=== PATIENT | female | born 1975 | race Caucasian/White ===

== ENCOUNTER 2017-07-22 01:41 | Emergency (ER) | payer BC ==
--- NOTE | 2017-07-22 01:58 | EDM.PDOC ---
ED HPI GENERAL MEDICAL PROBLEM - General Chief Complaint: Chest Pain Stated Complaint: CHEST PAIN Time Seen by Provider: 07/22/17 01:57 Source of Information: Reports: Patient History Limitations: Reports: No Limitations - History of Present Illness INITIAL COMMENTS - FREE TEXT/NARRATIVE: 42-year-old female attends the ED due to persistent retrosternal pressure discomfort that started before midnight last night. Radiates up into her neck through to her back. No relief with burping or belching. Patient has no known history of coronary disease. She has noted blood pressure to be elevated at home for the last several months but has been reluctant to take any blood pressure medications due to paroxysmal benign positional vertigo symptoms that she gets sporadically. She quite a bad bout yesterday which did make her vomit. No signs of vertigo today. At present she has a lot of pressure at the base of her skull with a headache. Blood pressure is markedly elevated at 208/116. She states it was 200/115 at home tonight. Denies cough or sputum production no fever or chills. Has a central chest pressure discomfort which is been constant for over 24 hours. She's had previous lap band procedure. Carried out greater than 10 years ago and rarely refluxes but it does happen occasionally. She's had previous cholecystectomy as well. She states number burping or belching does not seem to relieve the discomfort. She is a never smoker. ECG done by triage nurse shows sinus rhythm at 64 per minute. There is early R-wave transition with poor R-wave progression and no other signs of ischemia. There is left ventricular hypertrophy pattern by voltage only with prominent R-wave in lead 1. QT interval is mildly prolonged at 412. Onset: Gradual Onset Date: 07/21/17 (Has had chest pain for at least 24 hours a central chest pressure heaviness. Nothing seems to make it go away or make it better although she can distract a bit when she's busy during the day.) Duration: Hour(s):, Constant Location: Reports: Chest (Central chest pressure discomfort.) Quality: Reports: Ache, Pressure Severity: Moderate Improves with: Reports: None Worsens with: Reports: Other (Perhaps worse when lying down but she is also concentrating on it more.) Context: Denies: Activity, Exercise, Lifting, Sick Contact, Trauma, Other Associated Symptoms: Reports: Chest Pain. 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 (see below) (None.) Chest Pain Score (Numeric/FACES): 5 - Related Data Allergies Allergy/AdvReac Type Severity Reaction Status Date / Time Penicillins Allergy Hives Verified 07/22/17 01:51 Sulfa (Sulfonamide Allergy Hives Verified 07/22/17 01:51 Antibiotics) bees Allergy Airway Uncoded 04/20/16 13:29 Tightness Home Meds: Home Meds Lisinopril/Hydrochlorothiazide [Lisinopril-Hctz 20-12.5 mg Tab] 1 each PO DAILY #30 tablet 07/22/17 [Rx] Past Medical History Neurological History: Reports: Vertigo Psychiatric History: Reports: Anxiety, Depression - Past Surgical History GI Surgical History: Reports: Bariatric Procedure, Cholecystectomy Female Surgical History: Reports: Hysterectomy Social & Family History - Tobacco Use Smoking Status *Q: Never Smoker Second Hand Smoke Exposure: No - Caffeine Use Caffeine Use: Reports: Coffee - Recreational Drug Use Recreational Drug Use: No - Living Situation & Occupation Living situation: Reports: Occupation: Employed ED ROS GENERAL - Review of Systems Review Of Systems: See Below Constitutional: Reports: Malaise. Denies: Fever, Chills, Weakness, Fatigue, Decreased Appetite, Weight Loss HEENT: Reports: No Symptoms Respiratory: Denies: Shortness of Breath, Wheezing, Pleuritic Chest Pain, Cough , Sputum, Hemoptysis Cardiovascular: Reports: Chest Pain, Blood Pressure Problem. Denies: Claudication, Dyspnea on Exertion, Edema, Lightheadedness, Orthopnea (Has known hypertension for a long period of time but is been reluctant to take medications.), Palpitations Endocrine: Reports: No Symptoms GI/Abdominal: Reports: Decreased Appetite, Other (Had LAP-BAND procedure carried out 10 years ago with no adjustment of her fluid in her LAP-BAND port for a long time. Occasional GERD symptoms but rarely would have to take Tums or Rolaids.). Denies: Abdominal Pain : Reports: No Symptoms Musculoskeletal: Reports: Neck Pain (Knees and hips at times. At present her neck is giving her a lot of pressure discomfort.), Back Pain, Joint Pain Skin: Reports: No Symptoms Neurological: Reports: Headache. Denies: Confusion, Dizziness, Numbness, Paresthesia, Pre-Existing Deficit, Seizure, Syncope, Tingling, Tremors, Trouble Speaking, Difficulty Walking, Weakness, Gait Disturbance, Other Psychiatric: Reports: No Symptoms Hematologic/Lymphatic: Reports: No Symptoms Immunologic: Reports: No Symptoms ED EXAM, GENERAL - Physical Exam Exam: See Below Exam Limited By: No Limitations General Appearance: Alert, WD/WN, No Apparent Distress Eye Exam: Bilateral Eye: Normal Inspection Throat/Mouth: Normal Inspection, Normal Lips, Normal Teeth, Normal Gums Head: Atraumatic, Normocephalic Neck: Normal Inspection, Supple, Non-Tender, Full Range of Motion. No: Carotid Bruit, Lymphadenopathy (L), Lymphadenopathy (R) Respiratory/Chest: No Respiratory Distress, Lungs Clear, Normal Breath Sounds, Chest Non-Tender Cardiovascular: Normal Peripheral Pulses, Regular Rate, Rhythm, No Edema, No Gallop, No Murmur, No Rub Peripheral Pulses: 2+: Radial (L), Radial (R), Posterior Tibial (L), Posterior Tibial (R), Dorsalis Pedis (L), Dorsalis Pedis (R), 3+: Carotid (L), Carotid (R) GI/Abdominal: Normal Bowel Sounds, Soft, Non-Tender, No Organomegaly, Other ( Mildly obese. Port from left band is palpable left upper quadrant of the abdomen. Evidence of previous laparoscopic cholecystectomy) Extremities: Normal Inspection, Normal Range of Motion, Non-Tender, No Pedal Edema Neurological: Alert, Oriented, CN II-XII Intact, Normal Cognition, Normal Gait, No Motor/Sensory Deficits Psychiatric: Normal Affect, Normal Mood Skin Exam: Warm, Dry, Intact, Normal Color, No Rash EKG INTERPRETATION EKG Date: 07/22/17 Time: 01:50 Rhythm: NSR Rate (Beats/Min): 66 [place]: LAD-Left [place] Deviation (Mild left axis deviation at -10) P-Wave: Present QRS: Other (Early R-wave transition with poor R-wave progression after this. Consider right ventricular hypertrophy. Near Q-wave in 3 and aVF of unclear significance but consider possibility of an old inferior wall myocardial infarction.) ST-T: Normal QT: Prolonged (Mildly prolonged.) EKG Interpretation Comments: Abnormal ECG. Course - Vital Signs Last Recorded V/S: Last Vital Signs Temp 36.4 C 07/22/17 01:48 Pulse 62 07/22/17 03:51 Resp 18 07/22/17 03:51 BP 130/94 H 07/22/17 03:51 Pulse Ox 93 L 07/22/17 03:51 - Orders/Labs/Meds Orders: Active Orders 24 hr Category Date Time Status EKG Documentation Completion [RC] STAT Care 07/22/17 02:08 Active Chest 1V Frontal [CR] Stat Exams 07/22/17 02:08 Taken Labs: Laboratory Tests 07/22/17 07/22/17 07/22/17 Range/Units 02:20 02:20 02:20 WBC 5.81 (3.98-10.04) K/mm3 RBC 4.65 (3.98-5.22) M/mm3 Hgb 14.1 (11.2-15.7) gm/L Hct 41.0 (34.1-44.9) % MCV 88.2 (79.4-94.8) fl MCH 30.3 (25.6-32.2) pg MCHC 34.4 (32.2-35.5) g/dl RDW Std Deviation 40.6 (36.4-46.3) fL Plt Count 231 (182-369) K/mm3 MPV 9.9 (9.4-12.3) fl Neutrophils % (Manual) 50 (40-60) % Band Neutrophils % 0 (0-10) % Lymphocytes % (Manual) 40 (20-40) % Atypical Lymphs % 0 % Monocytes % (Manual) 6 (2-10) % Eosinophils % (Manual) 2 (0.7-5.8) % Basophils % (Manual) 2 H (0.1-1.2) Platelet Estimate Adequate Plt Morphology Comment Normal RBC Morph Comment Normal D-Dimer, Quantitative 0.71 H (0.19-0.59) mg/L Sodium 140 (136-145) mEq/L Potassium 3.7 (3.5-5.1) mEq/L Chloride 105 (98-107) mEq/L Carbon Dioxide 24 (21-32) mEq/L Anion Gap 14.7 (5-15) BUN 12 (7-18) mg/dL Creatinine 0.9 (0.55-1.02) mg/dL Est Cr Clr Drug Dosing 74.02 mL/min Estimated GFR (MDRD) > 60 (>60) mL/min BUN/Creatinine Ratio 13.3 L (14-18) Glucose 104 (74-106) mg/dL Calcium 8.5 (8.5-10.1) mg/dL Total Bilirubin 0.5 (0.2-1.0) mg/dL AST 18 (15-37) U/L ALT 31 (14-59) U/L Alkaline Phosphatase 70 (46-116) U/L CK-MB (CK-2) < 0.5 (0-3.6) ng/ml Troponin I < 0.017 (0.00-0.056) ng/mL C-Reactive Protein 0.3 (<1.0) mg/dL NT-Pro-B Natriuret Pep 34 (0-125) pg/mL Total Protein 7.1 (6.4-8.2) g/dl Albumin 3.7 (3.4-5.0) g/dl Globulin 3.4 gm/dL Albumin/Globulin Ratio 1.1 (1-2) Urine Color (Yellow) Urine Appearance (Clear) Urine pH (5.0-8.0) Ur Specific [place] (1.005-1.030) Urine Protein (Negative) Urine Glucose (UA) (Negative) Urine Ketones (Negative) Urine Occult Blood (Negative) Urine Nitrite (Negative) Urine Bilirubin (Negative) Urine Urobilinogen (0.2-1.0) Ur Leukocyte Esterase (Negative) Urine RBC (0-5) /hpf Urine WBC (0-5) /hpf Ur Epithelial Cells (0-5) /hpf Urine Bacteria (FEW) /hpf Urine Mucus (FEW) /hpf 07/22/17 Range/Units 03:10 WBC (3.98-10.04) K/mm3 RBC (3.98-5.22) M/mm3 Hgb (11.2-15.7) gm/L Hct (34.1-44.9) % MCV (79.4-94.8) fl MCH (25.6-32.2) pg MCHC (32.2-35.5) g/dl RDW Std Deviation (36.4-46.3) fL Plt Count (182-369) K/mm3 MPV (9.4-12.3) fl Neutrophils % (Manual) (40-60) % Band Neutrophils % (0-10) % Lymphocytes % (Manual) (20-40) % Atypical Lymphs % % Monocytes % (Manual) (2-10) % Eosinophils % (Manual) (0.7-5.8) % Basophils % (Manual) (0.1-1.2) Platelet Estimate Plt Morphology Comment RBC Morph Comment D-Dimer, Quantitative (0.19-0.59) mg/L Sodium (136-145) mEq/L Potassium (3.5-5.1) mEq/L Chloride (98-107) mEq/L Carbon Dioxide (21-32) mEq/L Anion Gap (5-15) BUN (7-18) mg/dL Creatinine (0.55-1.02) mg/dL Est Cr Clr Drug Dosing mL/min Estimated GFR (MDRD) (>60) mL/min BUN/Creatinine Ratio (14-18) Glucose (74-106) mg/dL Calcium (8.5-10.1) mg/dL Total Bilirubin (0.2-1.0) mg/dL AST (15-37) U/L ALT (14-59) U/L Alkaline Phosphatase (46-116) U/L CK-MB (CK-2) (0-3.6) ng/ml Troponin I (0.00-0.056) ng/mL C-Reactive Protein (<1.0) mg/dL NT-Pro-B Natriuret Pep (0-125) pg/mL Total Protein (6.4-8.2) g/dl Albumin (3.4-5.0) g/dl Globulin gm/dL Albumin/Globulin Ratio (1-2) Urine Color Yellow (Yellow) Urine Appearance Clear (Clear) Urine pH 6.0 (5.0-8.0) Ur Specific [place] 1.015 (1.005-1.030) Urine Protein Negative (Negative) Urine Glucose (UA) Negative (Negative) Urine Ketones Negative (Negative) Urine Occult Blood Negative (Negative) Urine Nitrite Negative (Negative) Urine Bilirubin Negative (Negative) Urine Urobilinogen 0.2 (0.2-1.0) Ur Leukocyte Esterase Negative (Negative) Urine RBC 0-5 (0-5) /hpf Urine WBC 0-5 (0-5) /hpf Ur Epithelial Cells 0-5 (0-5) /hpf Urine Bacteria Few (FEW) /hpf Urine Mucus Not seen (FEW) /hpf Meds: Medications Discontinued Medications Generic Name Dose Route Start Last Admin Trade Name Bladimir PRN Reason Stop Dose Admin Hydromorphone HCl 0.5 mg 07/22/17 02:07 07/22/17 02:27 Dilaudid IVPUSH 07/22/17 02:08 0.5 mg ONETIME ONE Administration Sodium Chloride 1,000 mls @ 100 mls/hr 07/22/17 02:15 07/22/17 02:24 Normal Saline IV 100 mls/hr ASDIRECTED TARI Administration Labetalol HCl 20 mg 07/22/17 02:07 07/22/17 02:28 Normodyne IVPUSH 07/22/17 02:08 20 mg ONETIME ONE Administration Protocol Lisinopril 20 mg 07/22/17 03:29 07/22/17 03:48 Prinivil PO 07/22/17 03:30 20 mg ONETIME ONE Administration Metoclopramide HCl 10 mg 07/22/17 02:07 07/22/17 02:25 Reglan IVPUSH 07/22/17 02:08 10 mg ONETIME ONE Administration - Radiology Interpretation Free Text/Narrative:: 42-year-old female presents the ED with reported central chest pressure heaviness for the last 24 hours. He won't go away. Not relieved by burping or belching. She rarely has reflux esophagitis. She's had previous lap band procedure performed greater than 10 years ago with a 70 pound weight loss which is managed to maintain. She is a lot of pressure in the nape her back of her neck. Associated mild occipital headache. No nausea or vomiting. Did have an episode of paroxysmal benign positional vertigo yesterday that did cause nausea and vomiting. She does not feel vertiginous or ataxic today. She knows that her blood pressure is elevated but has been reluctant to seek medication for this woman terms of worrying that it might make her vertigo worse. Current blood pressure is 196/114. This in itself could cause some chest pressure discomfort as well as headache and pressure in the nape of her neck. ECG shows sinus rhythm at 66/m with early R-wave transition and poor R-wave progression. Near Q- wave in lead 3 and aVF of unclear significance. No acute signs of ischemia are evident. Plan will be given Dilaudid 0.5 mg with Reglan 10 mg IV for headache and nape of neck pressure discomfort. Also labetalol 20 mg IV bolus to lower her blood pressure acutely. Routine labs and urinalysis to be obtained. This will include cardiac markers. Also a d-dimer. - Re-Assessments/Exams Free Text/Narrative Re-Assessment/Exam: 07/22/17 02:38 BP is 168/88. Heart rate is 66/min.. 07/22/17 03:19 White count is normal at 5.81. Differential is pending. Hemoglobin is 14.1 with hematocrit of 41.0. D-dimer is mildly elevated at 0.71 with normal overlapping up to 0.59. This is felt to be inconsequential sodium is 140 potassium 3.7. Chloride 105 bicarbonate 24. Anion gap is 14.7 with a BUN of 12. Creatinine is 0.9. GFR is greater than 60. Glucose is 104 calcium 8.5 bilirubin 0.5. AST is 18 ALT is 31. Cardiac markers are normal. BNP was 34. Current blood pressure is 137/98. Heart rate is 60 and sinus. 07/22/17 03:27 patient is feeling much improved. No further chest pain headache and pain in the back of her neck is also markedly improved. BP on last recording was 142/90. Going to discharge her home with lisinopril 29 g tablets take later this afternoon. Prescription will be written for lisinopril/ hydrochlorothiazide 20/12.5. She is to take this once daily and follow her blood pressures with review in the clinic in 10-14 days time. Departure - Departure Time of Disposition: 03:27 Disposition: Home, Self-Care 01 Condition: Fair Clinical Impression: Essential hypertension, Non-cardiac chest pain Headache Qualifiers: Headache type: other vascular headache Qualified Code(s): G44.1 - Vascular headache, not elsewhere classified Prescriptions: Lisinopril/Hydrochlorothiazide [Lisinopril-Hctz 20-12.5 mg Tab] 1 each PO DAILY #30 tablet Instructions: General Headache Without Cause, Hypertension, [id number] Referrals: Kat Bailey PA-C [Primary Care Provider] - Forms: ED Department Discharge Additional Instructions: Evaluation in the emergency room tonight in regards to persistent central chest pressure discomfort associated with occipital headache and pressure in the neck. Identified to have marked elevation of your blood pressure upon arrival in the ED with initial recording at 204/114. Was felt clinically that her blood pressure elevation was contributing to a lot of your current symptoms. You're therefore given leg below 20 mg IV in an effort to lower your blood pressure. At the time of discharge blood pressure was down to 142/90. Lab work done through the ED was completely normal and chest x-ray was normal as was your heart tracing. No evidence of heart related illness. You're sent home with a lisinopril 20 mg tablet which I would like you to take about 2:00 this afternoon in an effort to continue blood pressure reduction. Prescription will be written for lisinopril 20/hydrochlorothiazide 12.5mg to be taken once daily. You are to fill this at the [facility] on Sunday. Check blood pressures intermittently at home and write down that date and time. Follow-up in clinic in 2 weeks time with your provider for blood pressure review. - My Orders Last 24 Hours: My Active Orders 07/22/17 02:08 EKG Documentation Completion [RC] STAT Chest 1V Frontal [CR] Stat - Assessment/Plan Last 24 Hours: My Active Orders 07/22/17 02:08 EKG Documentation Completion [RC] STAT Chest 1V Frontal [CR] Stat
[2017-07-22] MEDS ORDERED: Metoclopramide 10 MG/2 ML SDV IVPUSH ONE (02:07)
[2017-07-22] MEDS ORDERED: Labetalol 100 MG/20 ML MDV IVPUSH ONE (02:07)
[2017-07-22] MEDS ORDERED: HYDROmorphone 0.5 MG/0.5 ML Syringe IVPUSH ONE (02:07)
[2017-07-22] MEDS ORDERED: Sodium Chloride 0.9% 1,000 ML IV SCH (02:15)
[2017-07-22] MEDS ORDERED: Lisinopril 20 MG Tab PO ONE (03:29)
[2017-07-22 03:49] VITALS: BP 130/94
--- NOTE | 2017-07-22 16:54 | CR ---
Chest: Portable view of the chest was obtained. Comparison: Prior chest x-ray of 04/20/16. Heart size appears within normal limits for portable technique. Upper mediastinum is within normal limits. Lungs are clear. Bony structures are grossly intact. Impression: 1. Nothing acute is seen on portable chest x-ray. Diagnostic code #1
== END 2017-07-22 03:51 | disposition home or self-care (01) ==
LOC: JD.ED 01:41
DX: R07.89 Other chest pain (principal); I10 Essential (primary) hypertension; G44.1 Vascular headache, not elsewhere classified; Z79.899 Other long term (current) drug therapy; Z88.0 Allergy status to penicillin; Z88.2 Allergy status to sulfonamides; Z91.030 Bee allergy status
CPT/HCPCS: 36415; 71045; 80053; 81001; 82553; 83880; 84484; 85025; 85379; 86140; 93005; 96361; 96374; 96375; 99285; A9270; J1170; J2765; J7040; 93010

== ENCOUNTER 2018-03-14 23:04 | Emergency (ER) | payer BC ==
[2018-03-15] MEDS ORDERED: Labetalol 100 MG/20 ML MDV IVPUSH ONE (00:04)
--- NOTE | 2018-03-15 00:18 | EDM.PDOC ---
ED HPI GENERAL MEDICAL PROBLEM - General Chief Complaint: Cardiovascular Problem Stated Complaint: HIGH BLOOD PRESSURE Time Seen by Provider: 03/14/18 23:23 Source of Information: Reports: Patient, Family (), RN Notes Reviewed History Limitations: Reports: No Limitations - History of Present Illness INITIAL COMMENTS - FREE TEXT/NARRATIVE: The patient states that she felt a fast fluttering sensation in her chest, nausea, and lightheadedness, around 21:00 tonight. She checked her blood pressure and found it to be elevated at 213/135, therefore called EMS. The patient acknowledges that she felt anxious, and also acknowledges that her lightheadedness is chronic. She did not experience any visual changes. No chest pain or dyspnea. According to the triage nurses notes, the patient's BP was 190/117 per EMS. Here in the ED, the patient's BP is noted to be 175/101. The patient states that she is starting to get a headache, but also notes that she chronically has headaches. The patient states that she does not have a formal diagnosis of hypertension, insomuch that she does not check her blood pressure at home under restful conditions, but that her blood pressure has been elevated at home when she is not feeling well, and when she is seen at the clinic. She states that she has been prescribed several antihypertensive medications in the past, but that she feels lightheaded when she takes them, and therefore does not currently take any medications on a regular basis at all, other than Tylenol and Advil for her chronic headaches. The patient's PCP is Ronit Harvey or Kat Bailey. Head Pain Score (Numeric/FACES): 6 - Related Data Allergies Allergy/AdvReac Type Severity Reaction Status Date / Time bee venom protein (honey bee) Allergy Airway Verified 07/23/17 12:13 Tightness Penicillins Allergy Hives Verified 07/22/17 01:51 Sulfa (Sulfonamide Allergy Hives Verified 07/22/17 01:51 Antibiotics) Home Meds: Home Meds . [No Known Home Meds] 03/14/18 [History] Past Medical History Neurological History: Reports: Other (See Below) (Persistent postural- perceptual dizziness) Psychiatric History: Reports: Anxiety, Depression Endocrine/Metabolic History: Reports: Obesity/BMI 30+ - Past Surgical History HEENT Surgical History: Reports: Oral Surgery (2 wisdom teeth extracted) GI Surgical History: Reports: Bariatric Procedure (Lap band), Cholecystectomy Female Surgical History: Reports: Hysterectomy Social & Family History - Tobacco Use Smoking Status *Q: Never Smoker - Caffeine Use Caffeine Use: Reports: Coffee - Alcohol Use Alcohol Use History: Yes Alcohol Use Frequency: Rarely - Recreational Drug Use Recreational Drug Use: No - Living Situation & Occupation Living situation: Reports: , with Spouse, with Family (2 kids) Occupation: Unemployed ED ROS GENERAL - Review of Systems Review Of Systems: ROS reveals no pertinent complaints other than HPI. ED EXAM, GENERAL - Physical Exam Exam: See Below Exam Limited By: No Limitations General Appearance: Alert, WD/WN, No Apparent Distress Eye Exam: Bilateral Eye: EOMI, Normal Inspection, PERRL, Other (No papilledema) Ears: Normal External Exam, Normal Canal, Hearing Grossly Normal, Normal TMs Nose: Normal Inspection, Normal Mucosa, No Blood Throat/Mouth: Normal Inspection, Normal Lips, Normal Teeth, Normal Gums, Normal Oropharynx, Normal Voice, No Airway Compromise Head: Atraumatic, Normocephalic Neck: Normal Inspection, Supple, Non-Tender, Full Range of Motion. No: Lymphadenopathy (L), Lymphadenopathy (R) Respiratory/Chest: No Respiratory Distress, Lungs Clear, Normal Breath Sounds, No Accessory Muscle Use Cardiovascular: Normal Peripheral Pulses, Regular Rate, Rhythm, No Gallop, No JVD, No Murmur, No Rub Peripheral Pulses: 4+: Radial (L), Radial (R) GI/Abdominal: Normal Bowel Sounds, Soft, Non-Tender, No Organomegaly, No Distention, No Abnormal Bruit, No Mass, Other (Obese) (Female) Exam: Deferred Rectal (Female) Exam: Deferred Back Exam: Normal Inspection, Full Range of Motion, NT Extremities: Normal Inspection, Normal Range of Motion, No Pedal Edema, Normal Capillary Refill Neurological: Alert, Oriented, CN II-XII Intact, Normal Cognition, No Motor/ Sensory Deficits Psychiatric: Normal Affect Skin Exam: Warm, Dry, Intact, Normal Color, No Rash EKG INTERPRETATION EKG Date: 03/15/18 Time: 00:16 Rhythm: Other (Sinus bradycardia) Rate (Beats/Min): 55 [place]: Normal P-Wave: Present QRS: Normal ST-T: Normal QT: Normal Comparison: No Change (07/22/2017) Course - Vital Signs Last Recorded V/S: Last Vital Signs Temp 37.0 C 03/14/18 23:20 Pulse 64 03/15/18 00:22 Resp 18 03/14/18 23:20 BP 175/97 H 03/15/18 00:22 Pulse Ox 99 03/14/18 23:20 - Orders/Labs/Meds Orders: Active Orders 24 hr Category Date Time Status EKG Documentation Completion [RC] STAT Care 03/15/18 00:03 Active Labs: Laboratory Tests 03/15/18 03/15/18 03/15/18 Range/Units 00:10 00:10 01:30 WBC 6.25 (3.98-10.04) K/mm3 RBC 4.64 (3.98-5.22) M/mm3 Hgb 14.3 (11.2-15.7) gm/L Hct 41.1 (34.1-44.9) % MCV 88.6 (79.4-94.8) fl MCH 30.8 (25.6-32.2) pg MCHC 34.8 (32.2-35.5) g/dl RDW Std Deviation 38.9 (36.4-46.3) fL Plt Count 284 (182-369) K/mm3 MPV 10.1 (9.4-12.3) fl Neutrophils % (Manual) 64 H (40-60) % Band Neutrophils % 0 (0-10) % Lymphocytes % (Manual) 24 (20-40) % Atypical Lymphs % 3 % Monocytes % (Manual) 4 (2-10) % Eosinophils % (Manual) 3 (0.7-5.8) % Basophils % (Manual) 2 H (0.1-1.2) Platelet Estimate Adequate Plt Morphology Comment Normal RBC Morph Comment Normal Sodium 140 (136-145) mEq/L Potassium 3.8 (3.5-5.1) mEq/L Chloride 103 (98-107) mEq/L Carbon Dioxide 28 (21-32) mEq/L Anion Gap 12.8 (5-15) BUN 10 (7-18) mg/dL Creatinine 1.0 (0.55-1.02) mg/dL Est Cr Clr Drug Dosing 65.95 mL/min Estimated GFR (MDRD) > 60 (>60) mL/min BUN/Creatinine Ratio 10.0 L (14-18) Glucose 107 H (74-106) mg/dL Calcium 9.8 (8.5-10.1) mg/dL Total Bilirubin 0.4 (0.2-1.0) mg/dL AST 12 L (15-37) U/L ALT 21 (14-59) U/L Alkaline Phosphatase 80 (46-116) U/L Troponin I < 0.017 (0.00-0.056) ng/mL Total Protein 7.7 (6.4-8.2) g/dl Albumin 4.1 (3.4-5.0) g/dl Globulin 3.6 gm/dL Albumin/Globulin Ratio 1.1 (1-2) Urine Color Yellow (Yellow) Urine Appearance Clear (Clear) Urine pH 7.0 (5.0-8.0) Ur Specific [place] 1.020 (1.005-1.030) Urine Protein Negative (Negative) Urine Glucose (UA) Negative (Negative) Urine Ketones Negative (Negative) Urine Occult Blood Negative (Negative) Urine Nitrite Negative (Negative) Urine Bilirubin Negative (Negative) Urine Urobilinogen 0.2 (0.2-1.0) Ur Leukocyte Esterase Negative (Negative) Urine RBC Not seen (0-5) /hpf Urine WBC 0-5 (0-5) /hpf Ur Epithelial Cells 0-5 (0-5) /hpf Urine Bacteria Few (FEW) /hpf Urine Mucus Not seen (FEW) /hpf Meds: Medications Discontinued Medications Generic Name Dose Route Start Last Admin Trade Name Freq PRN Reason Stop Dose Admin Labetalol HCl 20 mg 03/15/18 00:04 03/15/18 00:22 Normodyne IVPUSH 03/15/18 00:05 20 mg ONETIME ONE Administration Protocol - Re-Assessments/Exams Free Text/Narrative Re-Assessment/Exam: 03/15/18 00:06 It is unclear if the patient has hypertension not - she has not checked her blood pressure over a course of time while under restful conditions. She has only had elevated BP readings when seen in the clinic, and when she checks it at home when not feeling well. Additionally, the patient states that she gets lightheaded if she takes antihypertensives, indicating that she may become hypotensive. Nevertheless, the patient's BP has been persistently elevated since about 21:00, therefore I will treat her with a small dose of IV labetalol. In the mean time, I have ordered an ECG, blood work, and a urinalysis. 03/15/18 01:58 Following 20 mg IV labetalol, the patient's most recent BP is 146/95 with a HR of 66. The patient states that she feels well. I will discharge her home with the recommendation that she check her blood pressure under restful conditions, to determine if she has hypertension, and whether she would derive benefit from treatment. Departure - Departure Time of Disposition: 01:59 Disposition: Home, Self-Care 01 Condition: Good Clinical Impression: Elevated blood pressure reading Referrals: Kat Bailey PA-C [Primary Care Provider] - Forms: ED Department Discharge Additional Instructions: You were seen in the emergency room for elevated blood pressure. Workup in the ER included blood work, urinalysis, and an ECG, all of which were normal. You were given 20 mg IV labetalol in the ER, with good reduction of your blood pressure. Going forward, we recommend that you check your blood pressure 2 to 3 times a week, at different times of the day, for 2 to 3 weeks, to see if you in fact have hypertension. Make sure that you only check your blood pressure if you are under restful conditions: You have been sitting quietly for at least 5, and preferably 15 minutes You are not in pain, and that you do not have a headache You are not sick You are not feeling anxious or angry Write the numbers down and present them to your PCP for interpretation. If any other problems, please do not hesitate to return to the ER. - My Orders Last 24 Hours: My Active Orders 03/15/18 00:03 EKG Documentation Completion [RC] STAT - Assessment/Plan Last 24 Hours: My Active Orders 03/15/18 00:03 EKG Documentation Completion [RC] STAT
[2018-03-15 02:17] VITALS: BP 160/99
== END 2018-03-15 02:17 | disposition home or self-care (01) ==
LOC: JD.ED 23:04
DX: R03.0 Elevated blood-pressure reading, without diagnosis of hypertension (principal); E66.9 Obesity, unspecified; Z88.0 Allergy status to penicillin; Z91.030 Bee allergy status
CPT/HCPCS: 36415; 80053; 81001; 84484; 85007; 85027; 93005; 96374; 99283; J3490; 93010; 99284-25

== ENCOUNTER 2019-12-04 22:18 | Emergency (ER) | payer BC ==
[2019-12-04 22:29] VITALS: BP 161/93; PULSE 67
--- NOTE | 2019-12-05 00:06 | EDM.PDOC ---
ED HPI GENERAL MEDICAL PROBLEM - General Chief Complaint: Cardiovascular Problem Stated Complaint: [facility] Time Seen by Provider: 12/04/19 22:50 Source of Information: Reports: Patient History Limitations: Reports: No Limitations - History of Present Illness INITIAL COMMENTS - FREE TEXT/NARRATIVE: TRIAGE NOTE -- pt was sitting in the garage and started having numbness to left arm and radiated to left jaw and tingling sensation to bilateral legs. pt took her BP and read 220/120, took labetalol 100 mg and xanax 1 mg. pt called ambulance because she felt lightheaded and headache. no any neurological symptoms upon triage. BP 161/93 [ End ] The complaint is essentially this --the patient had a 30 to 45-minute episode marked by "fluttering" in her chest, no vicente chest pain, but pain in the left arm and jaw. During this time she was short of breath and it interfered with her activity. There was also nausea. Blood pressure is noted. Risk factors consist of high blood pressure but no known other cardiovascular problem. Patient is also undergoing evaluation for possible demyelinating process. Patient took a Xanax and labetalol. No other intervention or measures to moderate symptoms prior to arrival. Left Arm Pain Score (Numeric/FACES): 2 - Related Data Allergies Allergy/AdvReac Type Severity Reaction Status Date / Time bee venom protein (honey bee) Allergy Severe Airway Verified 12/04/19 22:29 Tightness Penicillins Allergy Severe Hives Verified 12/04/19 22:29 Sulfa (Sulfonamide Allergy Severe Hives Verified 12/04/19 22:29 Antibiotics) Home Meds: Home Meds Hydrocodone/Acetaminophen [Hydrocodone-Acetamin 5-325 mg] 1 - 2 each PO Q6HR PRN #20 tablet 02/09/19 [Rx] Labetalol HCl [Labetalol] 100 mg PO BID 02/09/19 [History] ALPRAZolam [Xanax] 1 mg PO BEDTIME 12/04/19 [History] Past Medical History Cardiovascular History: Reports: Hypertension Neurological History: Reports: Other (See Below) Other Neuro History: BP3 Psychiatric History: Reports: Anxiety, Depression Endocrine/Metabolic History: Reports: Obesity/BMI 30+ - Past Surgical History HEENT Surgical History: Reports: Oral Surgery GI Surgical History: Reports: Bariatric Procedure, Cholecystectomy Female Surgical History: Reports: Hysterectomy Social & Family History - Tobacco Use Smoking Status *Q: Never Smoker Second Hand Smoke Exposure: No - Caffeine Use Caffeine Use: Reports: Soda - Recreational Drug Use Recreational Drug Use: No - Living Situation & Occupation Living situation: Reports: , with Spouse, with Family (2 kids) Occupation: Unemployed ED ROS GENERAL - Review of Systems Review Of Systems: Comprehensive ROS is negative, except as noted in HPI. ED EXAM, GENERAL - Physical Exam Exam: See Below Exam Limited By: No Limitations General Appearance: Alert, WD/WN, No Apparent Distress Eye Exam: Bilateral Eye: EOMI, PERRL Ears: Normal External Exam Nose: Normal Inspection Throat/Mouth: Normal Inspection Head: Atraumatic, Normocephalic Neck: Normal Inspection, Supple Respiratory/Chest: No Respiratory Distress, Lungs Clear, Normal Breath Sounds Cardiovascular: Regular Rate, Rhythm, No Murmur GI/Abdominal: Soft, Non-Tender Back Exam: Normal Inspection Extremities: Normal Inspection, Non-Tender Neurological: Alert, Oriented, Normal Cognition, No Motor/Sensory Deficits Psychiatric: Normal Affect, Normal Mood Skin Exam: Warm, Dry Course - Vital Signs Last Recorded V/S: Last Vital Signs Temp 36.8 C 12/04/19 22:23 Pulse 67 12/04/19 22:23 Resp 19 12/04/19 22:23 BP 161/93 H 12/04/19 22:23 Pulse Ox 97 12/04/19 22:23 - Orders/Labs/Meds Orders: Active Orders 24 hr Category Date Time Status EKG Documentation Completion [RC] STAT Care 12/04/19 22:51 Active EKG Documentation Completion [RC] STAT Care 12/05/19 01:46 Active Chest 1V Frontal [CR] Stat Exams 12/04/19 22:51 Taken Labs: Laboratory Tests 12/04/19 12/04/19 12/04/19 Range/Units 23:04 23:09 23:09 WBC 11.84 H (3.98-10.04) K/mm3 RBC 4.39 (3.98-5.22) M/mm3 Hgb 13.5 (11.2-15.7) gm/dl Hct 41.6 (34.1-44.9) % MCV 94.8 D (79.4-94.8) fl MCH 30.8 (25.6-32.2) pg MCHC 32.5 (32.2-35.5) g/dl RDW Std Deviation 44.7 (36.4-46.3) fL Plt Count 263 (182-369) K/mm3 MPV 10.2 (9.4-12.3) fl Neutrophils % (Manual) 74 H (40-60) % Band Neutrophils % 0 (0-10) % Lymphocytes % (Manual) 15 L (20-40) % Atypical Lymphs % 3 % Monocytes % (Manual) 5 (2-10) % Eosinophils % (Manual) 1 (0.7-5.8) % Basophils % (Manual) 2 H (0.1-1.2) Platelet Estimate Adequate RBC Morph Comment Normal PT 10.6 (9.7-12.0) SECONDS INR 0.97 APTT (22-31) SECONDS Sodium (136-145) mEq/L Potassium (3.5-5.1) mEq/L Chloride (98-107) mEq/L Carbon Dioxide (21-32) mEq/L Anion Gap (5-15) BUN (7-18) mg/dL Creatinine (0.55-1.02) mg/dL Est Cr Clr Drug Dosing mL/min Estimated GFR (MDRD) (>60) mL/min BUN/Creatinine Ratio (14-18) Glucose (74-106) mg/dL Calcium (8.5-10.1) mg/dL Total Bilirubin (0.2-1.0) mg/dL AST (15-37) U/L ALT (14-59) U/L Alkaline Phosphatase (46-116) U/L Troponin I (0.00-0.056) ng/mL Total Protein (6.4-8.2) g/dl Albumin (3.4-5.0) g/dl Globulin gm/dL Albumin/Globulin Ratio (1-2) Urine Color (Yellow) Urine Appearance (Clear) Urine pH (5.0-8.0) Ur Specific [place] (1.005-1.030) Urine Protein (Negative) Urine Glucose (UA) (Negative) Urine Ketones (Negative) Urine Occult Blood (Negative) Urine Nitrite (Negative) Urine Bilirubin (Negative) Urine Urobilinogen (0.2-1.0) Ur Leukocyte Esterase (Negative) Urine HCG, Qual Negative (NEGATIVE) Urine Opiates Screen (SSPGPV=333) Ur Buprenorphine Scrn (CUTOFF=10) Ur Oxycodone Screen (BAW2EU=326) Urine Methadone Screen (EWLSYO=475) Ur Propoxyphene Screen (REQEMD=807) Ur Barbiturates Screen (HJUAMZ=820) Ur Tricyclics Screen (RHHOKE=247) Ur Phencyclidine Scrn (CUTOFF=25) Ur Amphetamine Screen (GRPQUP=300) U Methamphetamines Scrn (CAEZJH=086) U Benzodiazepines Scrn (NEONMC=110) U Cocaine Metab Screen (ACDBHE=247) U Marijuana (THC) Screen (CUTOFF=50) 12/04/19 12/04/19 12/04/19 Range/Units 23:09 23:09 23:23 WBC (3.98-10.04) K/mm3 RBC (3.98-5.22) M/mm3 Hgb (11.2-15.7) gm/dl Hct (34.1-44.9) % MCV (79.4-94.8) fl MCH (25.6-32.2) pg MCHC (32.2-35.5) g/dl RDW Std Deviation (36.4-46.3) fL Plt Count (182-369) K/mm3 MPV (9.4-12.3) fl Neutrophils % (Manual) (40-60) % Band Neutrophils % (0-10) % Lymphocytes % (Manual) (20-40) % Atypical Lymphs % % Monocytes % (Manual) (2-10) % Eosinophils % (Manual) (0.7-5.8) % Basophils % (Manual) (0.1-1.2) Platelet Estimate RBC Morph Comment PT (9.7-12.0) SECONDS INR APTT 26 (22-31) SECONDS Sodium 139 (136-145) mEq/L Potassium 4.0 (3.5-5.1) mEq/L Chloride 104 (98-107) mEq/L Carbon Dioxide 25 (21-32) mEq/L Anion Gap 14.0 (5-15) BUN 19 H (7-18) mg/dL Creatinine 0.9 (0.55-1.02) mg/dL Est Cr Clr Drug Dosing 72.53 mL/min Estimated GFR (MDRD) > 60 (>60) mL/min BUN/Creatinine Ratio 21.1 H (14-18) Glucose 102 (74-106) mg/dL Calcium 9.1 (8.5-10.1) mg/dL Total Bilirubin 0.4 (0.2-1.0) mg/dL AST 8 L (15-37) U/L ALT 39 (14-59) U/L Alkaline Phosphatase 70 (46-116) U/L Troponin I < 0.017 (0.00-0.056) ng/mL Total Protein 7.3 (6.4-8.2) g/dl Albumin 3.8 (3.4-5.0) g/dl Globulin 3.5 gm/dL Albumin/Globulin Ratio 1.1 (1-2) Urine Color Yellow (Yellow) Urine Appearance Clear (Clear) Urine pH 6.5 (5.0-8.0) Ur Specific [place] 1.015 (1.005-1.030) Urine Protein Negative (Negative) Urine Glucose (UA) Negative (Negative) Urine Ketones Negative (Negative) Urine Occult Blood Negative (Negative) Urine Nitrite Negative (Negative) Urine Bilirubin Negative (Negative) Urine Urobilinogen 0.2 (0.2-1.0) Ur Leukocyte Esterase Negative (Negative) Urine HCG, Qual (NEGATIVE) Urine Opiates Screen (FCFDBE=810) Ur Buprenorphine Scrn (CUTOFF=10) Ur Oxycodone Screen (IVI1DA=533) Urine Methadone Screen (UJKWQA=453) Ur Propoxyphene Screen (WILVYS=369) Ur Barbiturates Screen (JYKNYA=674) Ur Tricyclics Screen (GSVJQG=794) Ur Phencyclidine Scrn (CUTOFF=25) Ur Amphetamine Screen (HDUCIW=857) U Methamphetamines Scrn (CYPFFK=092) U Benzodiazepines Scrn (ZHHDZB=540) U Cocaine Metab Screen (OZVGNK=630) U Marijuana (THC) Screen (CUTOFF=50) 12/04/19 12/05/19 Range/Units 23:23 02:00 WBC (3.98-10.04) K/mm3 RBC (3.98-5.22) M/mm3 Hgb (11.2-15.7) gm/dl Hct (34.1-44.9) % MCV (79.4-94.8) fl MCH (25.6-32.2) pg MCHC (32.2-35.5) g/dl RDW Std Deviation (36.4-46.3) fL Plt Count (182-369) K/mm3 MPV (9.4-12.3) fl Neutrophils % (Manual) (40-60) % Band Neutrophils % (0-10) % Lymphocytes % (Manual) (20-40) % Atypical Lymphs % % Monocytes % (Manual) (2-10) % Eosinophils % (Manual) (0.7-5.8) % Basophils % (Manual) (0.1-1.2) Platelet Estimate RBC Morph Comment PT (9.7-12.0) SECONDS INR APTT (22-31) SECONDS Sodium (136-145) mEq/L Potassium (3.5-5.1) mEq/L Chloride (98-107) mEq/L Carbon Dioxide (21-32) mEq/L Anion Gap (5-15) BUN (7-18) mg/dL Creatinine (0.55-1.02) mg/dL Est Cr Clr Drug Dosing mL/min Estimated GFR (MDRD) (>60) mL/min BUN/Creatinine Ratio (14-18) Glucose (74-106) mg/dL Calcium (8.5-10.1) mg/dL Total Bilirubin (0.2-1.0) mg/dL AST (15-37) U/L ALT (14-59) U/L Alkaline Phosphatase (46-116) U/L Troponin I < 0.017 (0.00-0.056) ng/mL Total Protein (6.4-8.2) g/dl Albumin (3.4-5.0) g/dl Globulin gm/dL Albumin/Globulin Ratio (1-2) Urine Color (Yellow) Urine Appearance (Clear) Urine pH (5.0-8.0) Ur Specific [place] (1.005-1.030) Urine Protein (Negative) Urine Glucose (UA) (Negative) Urine Ketones (Negative) Urine Occult Blood (Negative) Urine Nitrite (Negative) Urine Bilirubin (Negative) Urine Urobilinogen (0.2-1.0) Ur Leukocyte Esterase (Negative) Urine HCG, Qual (NEGATIVE) Urine Opiates Screen Negative (HZXJGG=367) Ur Buprenorphine Scrn Negative (CUTOFF=10) Ur Oxycodone Screen Negative (KWX4ZV=529) Urine Methadone Screen Negative (VHPTCR=560) Ur Propoxyphene Screen Negative (FBBQEJ=880) Ur Barbiturates Screen Negative (DDSNBE=132) Ur Tricyclics Screen Negative (ZXOAEC=602) Ur Phencyclidine Scrn Negative (CUTOFF=25) Ur Amphetamine Screen Negative (EXADJZ=617) U Methamphetamines Scrn Negative (SGWMYV=848) U Benzodiazepines Scrn Presumptive positive H (KBUKKN=312) U Cocaine Metab Screen Negative (TWSTIL=821) U Marijuana (THC) Screen Negative (CUTOFF=50) Meds: Medications Discontinued Medications Generic Name Dose Route Start Last Admin Trade Name Bladimir PRN Reason Stop Dose Admin Acetaminophen 975 mg 12/05/19 01:23 12/05/19 01:28 Tylenol PO 12/05/19 01:24 975 mg ONETIME ONE Administration - Re-Assessments/Exams Free Text/Narrative Re-Assessment/Exam: 12/05/19 02:43 The patient has been evaluated for chest pain though it is an atypical presentation. She had a troponin which was negative as well as an EKG without any acute change essentially normal tracing. Held for 3 hours and troponin EKG repeated and both again unremarkable and troponin clearly not showing any increase. See instructions to patient. Departure - Departure Time of Disposition: 02:44 Disposition: Home, Self-Care 01 Condition: Good Clinical Impression: Atypical chest pain Referrals: Kat Bailey PA-C [Primary Care Provider] - Forms: ED Department Discharge Additional Instructions: You have been evaluated for what would seem to be an atypical presentation of cardiac chest pain. You have been evaluated with labs and EKG after waiting 3 hours after the first set of normal results and there has been no indication that there is any acute process. EKGs 3 hours apart were essentially normal tracings. Troponin sensitive indicator of heart damage was completely unremarkable on 2 tests. 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 In the meantime should there be any chest pain especially if associated with sweating shortness of breath nausea interference with normal activity do not hesitate to return to the emergency department by calling 911 and coming with EMS. Sepsis Event Note (ED) - Evaluation Sepsis Screening Result: No Definite Risk - Focused Exam Vital Signs: Vital Signs Temp Pulse Resp BP Pulse Ox 12/04/19 22:23 36.8 C 67 19 161/93 H 97 - My Orders Last 24 Hours: My Active Orders 12/04/19 22:51 EKG Documentation Completion [RC] STAT Chest 1V Frontal [CR] Stat 12/05/19 01:46 EKG Documentation Completion [RC] STAT - Assessment/Plan Last 24 Hours: My Active Orders 12/04/19 22:51 EKG Documentation Completion [RC] STAT Chest 1V Frontal [CR] Stat 12/05/19 01:46 EKG Documentation Completion [RC] STAT
[2019-12-05] MEDS ORDERED: Acetaminophen 325 MG Tab PO ONE (01:23)
--- NOTE | 2019-12-05 10:33 | CR ---
Chest: Frontal view of the chest was obtained. Comparison: Prior chest x-ray of 02/09/19. Heart size is normal. Tortuous thoracic aorta is seen. Lungs are clear with no acute parenchymal change. Bony structures are grossly intact. Impression: 1. Nothing acute is seen on frontal chest x-ray. Diagnostic code #1 This report was dictated in MDT
== END 2019-12-05 03:02 | disposition home or self-care (01) ==
LOC: JD.ED 22:18
DX: R07.89 Other chest pain (principal); F41.9 Anxiety disorder, unspecified; I10 Essential (primary) hypertension; E66.9 Obesity, unspecified; Z68.38 Body mass index [BMI] 38.0-38.9, adult; Z91.030 Bee allergy status; Z88.0 Allergy status to penicillin; Z88.2 Allergy status to sulfonamides; Z79.899 Other long term (current) drug therapy
CPT/HCPCS: 36415; 71045; 80053; 80306; 81003; 81025; 84484; 85007; 85027; 85610; 85730; 93005; 99285; A9270; 93010; 99284

== ENCOUNTER 2020-04-10 19:31 | Emergency (ER) | payer BC ==
[2020-04-10 20:00] VITALS: BP 157/95; PULSE 72
--- NOTE | 2020-04-10 21:03 | EDM.PDOC ---
ED HPI GENERAL MEDICAL PROBLEM - General Chief Complaint: Respiratory Problem Stated Complaint: CHEST PAIN/SOB Time Seen by Provider: 04/10/20 20:20 Source of Information: Reports: Patient, RN Notes Reviewed History Limitations: Reports: No Limitations - History of Present Illness INITIAL COMMENTS - FREE TEXT/NARRATIVE: Patient is a 45-year-old female who presents to the ED for her chest discomfort and shortness of breath. Patient notes that she has been having achy chest pressure/pain for the last week. She states it is gotten worse over the last 2 days and has not gone away. She is also worried because she does have some shortness of breath with exertion, states that getting up the stairs at her home is quite difficult. States she has to sit down to catch her breath. She does have multiple chronic medical issues including low back pain, suspected MS, headaches that she is seen neurology for. She denies any past heart issues or lung issues otherwise. She states she was on a pain contract with Dr. Gr in [place] for injections, but he has subsequently quit and she is between providers at this time. She does have some numbness and tingling into her legs, and she is questioning if all of this is due to the pain she is having in her back. She does not have any known COVID exposures, but she states her son had cold-like symptoms last week. She had traveled last weekend to [place]. She states that she had a headache today on the left side of her head and numbness to the left side of her face, and she did take 1000 mg Tylenol for this and it did not help much at all. Chest Pain Score (Numeric/FACES): 5 - Related Data Allergies Allergy/AdvReac Type Severity Reaction Status Date / Time bee venom protein (honey bee) Allergy Severe Airway Verified 12/04/19 22:29 Tightness Penicillins Allergy Severe Hives Verified 12/04/19 22:29 Sulfa (Sulfonamide Allergy Severe Hives Verified 12/04/19 22:29 Antibiotics) Home Meds: Home Meds Labetalol HCl [Labetalol] 100 mg PO BID 02/09/19 [History] ALPRAZolam [Xanax] 1 mg PO BEDTIME 12/04/19 [History] Cholecalciferol (Vitamin D3) [Vitamin D3] 50,000 unit PO MO 04/10/20 [History] amLODIPine [Norvasc] 5 mg PO DAILY 04/10/20 [History] Past Medical History Cardiovascular History: Reports: Hypertension Musculoskeletal History: Reports: Back Pain, Chronic Neurological History: Reports: Other (See Below) Other Neuro History: BP3, headaches Psychiatric History: Reports: Anxiety, Depression Endocrine/Metabolic History: Reports: Obesity/BMI 30+ - Past Surgical History HEENT Surgical History: Reports: Oral Surgery GI Surgical History: Reports: Bariatric Procedure, Cholecystectomy Female Surgical History: Reports: Hysterectomy Social & Family History - Tobacco Use Tobacco Use Status *Q: Never Tobacco User - Caffeine Use Caffeine Use: Reports: Soda - Recreational Drug Use Recreational Drug Use: No - Living Situation & Occupation Living situation: Reports: , with Spouse, with Family (2 kids) Occupation: Unemployed ED ROS GENERAL - Review of Systems Review Of Systems: Comprehensive ROS is negative, except as noted in HPI. ED EXAM, GENERAL - Physical Exam Exam: See Below Exam Limited By: No Limitations General Appearance: Alert, WD/WN, No Apparent Distress Throat/Mouth: Normal Inspection, Normal Lips, Normal Teeth, Normal Gums, Normal Oropharynx, Normal Voice, No Airway Compromise Head: Atraumatic, Normocephalic Neck: Normal Inspection, Supple, Non-Tender, Full Range of Motion Respiratory/Chest: No Respiratory Distress, Lungs Clear, Normal Breath Sounds, No Accessory Muscle Use, Chest Non-Tender Cardiovascular: Normal Peripheral Pulses, Regular Rate, Rhythm, No Murmur Peripheral Pulses: 2+: Radial (L), Radial (R) Extremities: Normal Inspection, Normal Capillary Refill, Other (negative straight leg raise bilaterally) Neurological: Alert, Oriented, Normal Cognition, No Motor/Sensory Deficits Psychiatric: Normal Affect, Normal Mood Skin Exam: Warm, Dry, Intact, Normal Color, No Rash #1 Interpretation EKG Date: 04/10/20 Time: 20:29 Rhythm: NSR Rate (Beats/Min): 61 [place]: Normal P-Wave: Present QRS: Normal ST-T: Normal QT: Normal Comparison: NA - No Prior EKG EKG Interpretation Comments: No obvious ischemia or acute ST changes noted, reviewed by myself and Dr. Michelle. Course - Vital Signs Last Recorded V/S: Last Vital Signs Temp 98.4 F 04/10/20 19:58 Pulse 72 04/10/20 19:58 Resp 20 04/10/20 19:58 BP 157/95 H 04/10/20 19:58 Pulse Ox 99 04/10/20 19:58 - Orders/Labs/Meds Labs: Laboratory Tests 04/10/20 04/10/20 Range/Units 20:40 20:40 WBC 7.13 (3.98-10.04) K/mm3 RBC 4.58 (3.98-5.22) M/mm3 Hgb 14.2 (11.2-15.7) gm/dl Hct 42.7 (34.1-44.9) % MCV 93.2 (79.4-94.8) fl MCH 31.0 (25.6-32.2) pg MCHC 33.3 (32.2-35.5) g/dl RDW Std Deviation 41.1 (36.4-46.3) fL Plt Count 313 (182-369) K/mm3 MPV 10.0 (9.4-12.3) fl Neut % (Auto) 65.3 (34.0-71.1) % Lymph % (Auto) 23.6 (19.3-51.7) % [place] % (Auto) 7.4 (4.7-12.5) % Eos % (Auto) 2.4 (0.7-5.8) Baso % (Auto) 1.0 (0.1-1.2) % Neut # (Auto) 4.66 (1.56-6.13) K/mm3 Lymph # (Auto) 1.68 (1.18-3.74) K/mm3 [place] # (Auto) 0.53 H (0.24-0.36) K/mm3 Eos # (Auto) 0.17 (0.04-0.36) K/mm3 Baso # (Auto) 0.07 (0.01-0.08) K/mm3 Sodium 139 (136-145) mEq/L Potassium 3.9 (3.5-5.1) mEq/L Chloride 103 (98-107) mEq/L Carbon Dioxide 28 (21-32) mEq/L Anion Gap 11.9 (5-15) BUN 14 (7-18) mg/dL Creatinine 0.8 (0.55-1.02) mg/dL Est Cr Clr Drug Dosing 80.75 mL/min Estimated GFR (MDRD) > 60 (>60) mL/min BUN/Creatinine Ratio 17.5 (14-18) Glucose 105 (74-106) mg/dL Calcium 8.9 (8.5-10.1) mg/dL Total Bilirubin 0.4 (0.2-1.0) mg/dL AST 19 (15-37) U/L ALT 33 (14-59) U/L Alkaline Phosphatase 74 (46-116) U/L Troponin I < 0.017 (0.00-0.056) ng/mL Total Protein 7.1 (6.4-8.2) g/dl Albumin 3.6 (3.4-5.0) g/dl Globulin 3.5 gm/dL Albumin/Globulin Ratio 1.0 (1-2) - Re-Assessments/Exams Free Text/Narrative Re-Assessment/Exam: 04/10/20 21:02 Patient presents to the ED for the evaluation of her shortness of breath, chest discomfort. EKG demonstrates no acute abnormalities. Patient's chest x-ray was also acute for any obvious findings. Labs are pending at this time. 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 We will leave that decision up to her for state send out, and see if she would like this done before she is discharged. My plan is to send her home with a course of prednisone to see if this helps her back pain as well. 04/10/20 21:32 Patient's labs have returned and are all unremarkable. The patient does not want a state send out COVID test at this time. But she would like to try the prednisone for her back pain. I will give her prescription for the instrument machine. Discharge instructions as documented. Departure - Departure Time of Disposition: 21:33 Disposition: Home, Self-Care 01 Condition: Good Clinical Impression: Chest discomfort, Dyspnea on exertion Back pain Qualifiers: Back pain location: low back pain Chronicity: acute Back pain laterality: bilateral Sciatica presence: without sciatica Qualified Code(s): M54.5 - Low back pain - Discharge Information *PRESCRIPTION DRUG MONITORING PROGRAM REVIEWED*: No *COPY OF PRESCRIPTION DRUG MONITORING REPORT IN PATIENT BC: No Instructions: Chronic Back Pain, [id number] Referrals: Frank Del Toro PA-C [Primary Care Provider] - Forms: ED Department Discharge Additional Instructions: You were evaluated in the ER today for your multiple symptoms. Your EKG, chest x-ray, and laboratory evaluation are all within normal limits. You were given a prescription for prednisone for your back pain, please take 1 tab 2 times a day for the next 5 days, and then 1 tab once a day for the next 5 days to total 10 days. You will have 5 tablets left over in the prescription, please discard these at your nearest pharmacy. If you are having lingering shortness of breath, recommend that you try to get through a drive-through COVID test in your hometown, sometime this week for further evaluation. I recommend you follow-up with your regular care providers, to try to get set up with a another pain doctor for back injections. Also follow-up with your regular provider for further management regarding your possible MS, and to hopefully get your neurology appointment rescheduled in [place]. Please return to the ER at any time if symptoms change or worsen. Sepsis Event Note (ED) - Evaluation Sepsis Screening Result: No Definite Risk
== END 2020-04-10 21:43 | disposition home or self-care (01) ==
LOC: JD.ED 19:31
DX: M54.5 Low back pain (principal); R07.89 Other chest pain; R06.02 Shortness of breath; I10 Essential (primary) hypertension; F41.9 Anxiety disorder, unspecified; E66.9 Obesity, unspecified; Z68.41 Body mass index [BMI] 40.0-44.9, adult; Z91.030 Bee allergy status; Z88.0 Allergy status to penicillin; Z88.2 Allergy status to sulfonamides; Z79.899 Other long term (current) drug therapy
CPT/HCPCS: 36415; 71045; 80053; 84484; 85025; 93005; 93010; 99283; 99285-25

== ENCOUNTER 2020-12-22 14:41 | Emergency (ER) | payer BC ==
[2020-12-22 15:10] VITALS: BP 153/98; PULSE 72
[2020-12-22] MEDS ORDERED: Alum Hydrox/Mag Hydrox/Simeth 30 ML, Lidocaine 2% 15 ML PO ONE ×2 (16:24)
--- NOTE | 2020-12-22 16:56 | EDM.PDOC ---
ED HPI GENERAL MEDICAL PROBLEM - General Chief Complaint: Chest Pain Stated Complaint: [facility] Time Seen by Provider: 12/22/20 15:09 Source of Information: Reports: Patient, Family, RN Notes Reviewed - History of Present Illness INITIAL COMMENTS - FREE TEXT/NARRATIVE: 45 yr old female has been having upper abd, lower mid chest discomfort off and on for the past few days. She has had no N/V or diarrhea with that. She did have back surgery about 5 weeks ago. Has been taking a fair amt of ibuprofen and aleve along with tylenol for the back discomfort. No cough, fever, chills or difficulty breathing. Chest Pain Score (Numeric/FACES): 5 - Related Data Allergies Allergy/AdvReac Type Severity Reaction Status Date / Time bee venom protein (honey bee) Allergy Severe Airway Verified 12/22/20 15:10 Tightness Penicillins Allergy Intermediate Hives Verified 12/22/20 15:10 Sulfa (Sulfonamide Allergy Intermediate Hives Verified 12/22/20 15:10 Antibiotics) Home Meds: Home Meds Labetalol HCl [Labetalol] 100 mg PO BID 02/09/19 [History] ALPRAZolam [Xanax] 1 mg PO BEDTIME 12/04/19 [History] Cholecalciferol (Vitamin D3) [Vitamin D3] 50,000 unit PO MO 04/10/20 [History] amLODIPine [Norvasc] 5 mg PO DAILY 04/10/20 [History] Past Medical History Cardiovascular History: Reports: Hypertension Musculoskeletal History: Reports: Back Pain, Chronic Neurological History: Reports: Other (See Below) Other Neuro History: BP3, headaches Psychiatric History: Reports: Anxiety, Depression Endocrine/Metabolic History: Reports: Obesity/BMI 30+ - Past Surgical History HEENT Surgical History: Reports: Oral Surgery GI Surgical History: Reports: Bariatric Procedure, Cholecystectomy Other GI Surgeries/Procedures: lap band in 2010 Female Surgical History: Reports: Hysterectomy Social & Family History - Tobacco Use Tobacco Use Status *Q: Never Tobacco User - Caffeine Use Caffeine Use: Reports: Soda - Living Situation & Occupation Living situation: Reports: , with Spouse, with Family (2 kids) Occupation: Unemployed ED ROS GENERAL - Review of Systems Review Of Systems: See Below Constitutional: Denies: Fever, Chills, Diaphoresis HEENT: Reports: No Symptoms Respiratory: Denies: Shortness of Breath, Pleuritic Chest Pain, Cough Cardiovascular: Reports: Chest Pain GI/Abdominal: Reports: Abdominal Pain. Denies: Diarrhea, Hematochezia, Melena, Nausea, Vomiting Musculoskeletal: Denies: Shoulder Pain, Arm Pain Skin: Reports: No Symptoms Neurological: Reports: No Symptoms ED EXAM, GENERAL - Physical Exam Exam: See Below General Appearance: Alert, No Apparent Distress Head: Atraumatic Neck: Supple Respiratory/Chest: No Respiratory Distress, Lungs Clear, Normal Breath Sounds, Chest Non-Tender Cardiovascular: Regular Rate, Rhythm GI/Abdominal: Soft, Tender (very mild tenderness upper mid abd). No: Guarding, Rebound Back Exam: No: CVA Tenderness (L), CVA Tenderness (R) Extremities: Normal Inspection. No: Pedal Edema, Leg Pain Neurological: Alert, Oriented, No Motor/Sensory Deficits Skin Exam: Warm, Dry, Normal Color #1 Interpretation EKG Date: 12/22/20 Rhythm: NSR [place]: Normal P-Wave: Present QRS: Other (borderline q waves lead III) ST-T: Normal Course - Vital Signs Last Recorded V/S: Last Vital Signs Temp 98.3 F 12/22/20 15:07 Pulse 72 12/22/20 15:07 Resp 18 12/22/20 15:07 BP 153/98 H 12/22/20 15:07 Pulse Ox 97 12/22/20 15:07 - Orders/Labs/Meds Orders: Active Orders 24 hr Category Date Time Status EKG 12 Lead [EKG Documentation Completion] [RC] STAT Care 12/22/20 15:35 Active Labs: Laboratory Tests 12/22/20 12/22/20 Range/Units 15:45 15:45 WBC 7.52 (3.98-10.04) K/mm3 RBC 4.24 (3.98-5.22) M/mm3 Hgb 13.1 (11.2-15.7) gm/dl Hct 38.4 (34.1-44.9) % MCV 90.6 (79.4-94.8) fl MCH 30.9 (25.6-32.2) pg MCHC 34.1 (32.2-35.5) g/dl RDW Std Deviation 44.0 (36.4-46.3) fL Plt Count 292 (182-369) K/mm3 MPV 10.0 (9.4-12.3) fl Neut % (Auto) 61.2 (34.0-71.1) % Lymph % (Auto) 26.3 (19.3-51.7) % [place] % (Auto) 7.2 (4.7-12.5) % Eos % (Auto) 4.4 (0.7-5.8) Baso % (Auto) 0.9 (0.1-1.2) % Neut # (Auto) 4.60 (1.56-6.13) K/mm3 Lymph # (Auto) 1.98 (1.18-3.74) K/mm3 [place] # (Auto) 0.54 H (0.24-0.36) K/mm3 Eos # (Auto) 0.33 (0.04-0.36) K/mm3 Baso # (Auto) 0.07 (0.01-0.08) K/mm3 Sodium 142 (136-145) mEq/L Potassium 4.4 (3.5-5.1) mEq/L Chloride 104 (98-107) mEq/L Carbon Dioxide 27 (21-32) mEq/L Anion Gap 15.4 H (5-15) BUN 12 (7-18) mg/dL Creatinine 0.9 (0.55-1.02) mg/dL Est Cr Clr Drug Dosing 71.78 mL/min Estimated GFR (MDRD) > 60 (>60) mL/min BUN/Creatinine Ratio 13.3 L (14-18) Glucose 100 H (70-99) mg/dL Calcium 9.2 (8.5-10.1) mg/dL Total Bilirubin 0.7 (0.2-1.0) mg/dL AST 34 (15-37) U/L ALT 53 (14-59) U/L Alkaline Phosphatase 97 (46-116) U/L Troponin I < 0.017 (0.00-0.056) ng/mL Total Protein 7.5 (6.4-8.2) g/dl Albumin 4.0 (3.4-5.0) g/dl Globulin 3.5 gm/dL Albumin/Globulin Ratio 1.1 (1-2) Lipase 187 (73-393) U/L Meds: Medications Discontinued Medications Generic Name Dose Route Start Last Admin Trade Name Freq PRN Reason Stop Dose Admin Al Hydroxide/Mg Hydroxide 30 0 ml 12/22/20 16:24 12/22/20 16:33 ml/ Lidocaine HCl 15 ml PO 12/22/20 16:25 45 ml ONETIME ONE Administration Departure - Departure Time of Disposition: 16:53 Disposition: Home, Self-Care 01 Condition: Fair Clinical Impression: Atypical chest pain Gastritis Qualifiers: Gastritis type: unspecified gastritis Chronicity: acute Gastritis bleeding: without bleeding Qualified Code(s): K29.00 - Acute gastritis without bleeding - Discharge Information Instructions: Gastritis, Adult, [id number] Referrals: Frank Del Toro PA-C [Primary Care Provider] - Forms: ED Department Discharge Additional Instructions: Try stop the aleve and ibuprofen as discussed. Tylenol 1000 mg up to 3 times daily if needed until back discomfort resolving. Alternate ice and heat as needed for low back. Increase pepcid to 20 mg twice daily. Follow up clinic as needed. Return to ED as needed if symptoms worsening in any way. Sepsis Event Note (ED) - Evaluation Sepsis Screening Result: No Definite Risk - Focused Exam Vital Signs: Vital Signs Temp Pulse Resp BP Pulse Ox 12/22/20 15:07 98.3 F 72 18 153/98 H 97 - My Orders Last 24 Hours: My Active Orders 12/22/20 15:35 EKG 12 Lead [EKG Documentation Completion] [RC] STAT - Assessment/Plan Last 24 Hours: My Active Orders 12/22/20 15:35 EKG 12 Lead [EKG Documentation Completion] [RC] STAT
== END 2020-12-22 17:04 | disposition home or self-care (01) ==
LOC: JD.ED 14:41
DX: R07.89 Other chest pain (principal); K29.00 Acute gastritis without bleeding; I10 Essential (primary) hypertension; E66.9 Obesity, unspecified; Z68.39 Body mass index [BMI] 39.0-39.9, adult; Z90.49 Acquired absence of other specified parts of digestive tract; Z88.0 Allergy status to penicillin; Z88.2 Allergy status to sulfonamides; Z91.030 Bee allergy status
CPT/HCPCS: 36415; 80053; 83690; 84484; 85025; 93005; 99285; A9270; 93010; 99283

== ENCOUNTER 2021-12-19 04:55 | Emergency (ER) | payer BC ==
[2021-12-19 05:09] VITALS: BP 171/96; PULSE 77
[2021-12-19] MEDS ORDERED: Benztropine 1 MG Tab PO ONE (05:32)
[2021-12-19] MEDS ORDERED: Sodium Chloride 0.9% 1,000 ML IV ONE (05:32)
[2021-12-19] MEDS ORDERED: Ondansetron 4 MG/2 ML SDV IVPUSH ONE (05:32)
[2021-12-19] MEDS ORDERED: Haloperidol Lactate 5 MG/ML SDV IM ONE (05:32)
== END 2021-12-19 07:06 | disposition home or self-care (01) ==
LOC: JD.ED 04:55
DX: G43.909 Migraine, unspecified, not intractable, without status migrainosus (principal); I10 Essential (primary) hypertension; E66.9 Obesity, unspecified; Z68.41 Body mass index [BMI] 40.0-44.9, adult; Z28.310 Unvaccinated for COVID-19; Z88.0 Allergy status to penicillin; Z88.2 Allergy status to sulfonamides; Z91.030 Bee allergy status; Z86.16 Personal history of COVID-19
CPT/HCPCS: 96361; 96372; 96374; 99283; A9270; J1630; J2405; J7030

== ENCOUNTER 2023-10-09 13:21 | Emergency (ER) | payer BC ==
[2023-10-09 13:37] VITALS: BP 184/100; PULSE 74
[2023-10-09 13:41] LABS: BASOPHILS ABSOLUTE AUTO 0.1 K/mm3 (0.0-0.2); BASOPHILS PERCENT AUTO 1.1 % (0.0-1.0); EOSINOPHILS ABSOLUTE AUTO 0.2 K/mm3 (0.0-0.4); EOSINOPHILS PERCENT AUTO 2.3 % (0.0-6.0); HEMATOCRIT 43.6 % (37.0-47.0); HEMOGLOBIN 14.9 gm/dl (12.0-16.0); IMMATURE GRAN ABSOLUTE AUTO 0.01 K/mm3 (0.00-0.05); IMMATURE GRAN PERCENT AUTO 0.2 % (0.0-0.4); LYMPHOCYTES ABSOLUTE AUTO 1.9 K/mm3 (1.0-4.8); LYMPHOCYTES PERCENT AUTO 28.9 % (24.0-44.0); MEAN CORPUSCULAR HEMOGLOBIN 31.6 pg (28.0-32.0); MEAN CORPUSCULAR HGB CONC 34.2 g/dl (32.0-36.0); MEAN CORPUSCULAR VOLUME 92.4 fl (83.0-99.0); MEAN PLATELET VOLUME 9.9 fl (9.4-12.3); MONOCYTES ABSOLUTE AUTO 0.4 K/mm3 (0.0-0.8); MONOCYTES PERCENT AUTO 5.3 % (0.0-8.0); NEUTROPHILS ABSOLUTE AUTO 4.1 K/mm3 (1.8-7.7); NEUTROPHILS PERCENT AUTO 62.2 % (41.0-71.0); PLATELET COUNT,PLT 248 K/mm3 (150-400); RED BLOOD CELL COUNT 4.72 M/mm3 (4.10-5.30); WHITE BLOOD CELL COUNT,WBC 6.62 K/mm3 (3.9-11.3)
[2023-10-09 14:00] LABS: INR 0.99; PROTHROMBIN TIME 10.6 SECONDS (9.7-12.0)
[2023-10-09 14:01] LABS: D-DIMER QUANTITATIVE 0.38 mg/L (0.19-0.50)
[2023-10-09 14:16] LABS: A/G RATIO 1.1 (1-2); ALANINE AMINOTRANSFERASE,ALT 38 U/L (14-59); ALKALINE PHOSPHATASE 71 U/L (46-116); ANION GAP 12.4 (5-15); ASPARTATE AMNIOTRANSFERASE,AST 18 U/L (15-37); BILIRUBIN TOTAL 0.5 mg/dL (0.2-1.0); BLOOD UREA NITROGEN,BUN 16 mg/dL (7-18); C-REACTIVE PROTEIN 0.65 mg/dL (<0.30); CALCIUM 9.2 mg/dL (8.5-10.1); CARBON DIOXIDE,CO2 28 mEq/L (21-32); CHLORIDE,CL 102 mEq/L (98-107); EST CRCL DRUG DOSING (CG) 60.06 mL/min; ESTIMATED GFR 70 mL/min (>60); GLUCOSE RANDOM 99 mg/dL (70-99); POTASSIUM,K 4.4 mEq/L (3.5-5.1); PROTEIN TOTAL,TP 7.5 g/dl (6.4-8.2); SODIUM,NA 138 mEq/L (136-145)
[2023-10-09 14:17] LABS: TROPONIN I HIGH SENSITIVITY < 4 pg/mL (<=51)
[2023-10-09] MEDS: Aspirin 81 MG Tab.Chew PO ONE (14:47)
[2023-10-09] MEDS: Sodium Chloride 0.9% 10 ML Syringe FLUSH PRN (14:48)
== END 2023-10-09 15:40 | disposition home or self-care (01) ==
LOC: JD.ED 13:21
DX: R42 Dizziness and giddiness (principal); R51.9 Headache, unspecified; R07.9 Chest pain, unspecified; I10 Essential (primary) hypertension; E66.9 Obesity, unspecified; Z91.030 Bee allergy status; Z88.0 Allergy status to penicillin; Z88.2 Allergy status to sulfonamides; Z86.16 Personal history of COVID-19; Z79.899 Other long term (current) drug therapy; Z90.49 Acquired absence of other specified parts of digestive tract; Z68.37 Body mass index [BMI] 37.0-37.9, adult; Z90.710 Acquired absence of both cervix and uterus
CPT/HCPCS: 36415; 70450; 71045; 80053; 83735; 83880; 84484; 85025; 85379; 85610; 86140; 93005; 99285; A9270; J3490; 93010; 99283